=== PATIENT | male | born 1980 | race Caucasian/White ===

== ENCOUNTER 2024-09-04 20:23 | Emergency (ER) | payer BC, SELFPAY ==
[2024-09-04 20:24] VITALS: BP 151/98
[2024-09-04 20:52] LABS: % Basophils 1.1 % (0-2); % Eosinophils 5.8 % (0-6); % Immature Granulocytes 0.1 % (0-0.5); % Lymphocytes 40.3 % (20.5-51.1); % Monocytes 7.9 % (1.7-9.3); % Neutrophils 44.8 % (42.2-75.2); Absolute Basophils 0.1 10^3/uL (0-0.2); Absolute Eosinophils 0.4 10^3/uL (0-0.7); Absolute Lymphocytes 2.9 10^3/uL (1.2-3.4); Absolute Monocytes 0.6 10^3/uL (0.1-0.6); Absolute Neutrophils 3.2 10^3/uL (1.4-6.5); Hematocrit 44.9 % (39.0-52.0); Hemoglobin 16.1 g/dL (13.0-18.0); Mean Corp Hgb Conc. 35.9 g/dL (33.0-37.0); Mean Corpuscular Hgb 31.4 pg (27.0-31.0); Mean Corpuscular Volume 87.7 fL (80.0-94.0); Mean Platelet Volume 9.3 fL (7.4-10.4); Nucleated Red Blood Cells % 0 % (-); Platelet Count 218 10^3/uL (130-400); Red Blood Cell Count 5.12 10^6/uL (4.70-6.10); White Blood Cell Count 7.1 10^3/uL (4.8-10.8)
[2024-09-04 21:10] LABS: ALT (SGPT) 38 U/L (0-50); AST (SGOT) 32 U/L (17-59); Albumin 4.5 g/dl (3.5-5.0); Alkaline Phosphatase 56 U/L (38-126); Blood Urea Nitrogen 14 mg/dl (9-20); Calcium 9.3 mg/dl (8.4-10.2); Carbon Dioxide 26 mmol/L (22-30); Chloride 103 mmol/L (98-107); Glucose 98 mg/dl (70-99); Potassium 4.1 mmol/L (3.5-5.1); Sodium 140 mmol/L (135-145); Total Bilirubin 0.4 mg/dl (0.2-1.3); Total Protein 6.7 g/dl (6.3-8.2); eGFR > 60.00
[2024-09-04 21:21] LABS: Troponin I < 0.012 ng/ml
--- NOTE | 2024-09-04 22:02 | ED.GENMED ---
History of Present Illness
General
Chief Complaint: Chest Pain
Source: patient
Exam Limitations: none
Time Seen by Provider: 09/04/24 21:47
History of Present Illness
History of Present Illness:
43-year-old male otherwise healthy presents complaining intermittent chest discomfort over the past 2 weeks. The pain is along the left side of his chest radiates to his shoulder worse with activity. There is associated shortness of breath.
Occasionally gets worse to take a deep breath and to move his left arm. He is a former smoker. There is significant family history of cardiac disease in his family. He does not take any medication currently. Points at this time
Phy Exam
Physical Exam
Physical Exam:
General: Well-appearing male no acute respiratory distress HEENT: Normocephalic atraumatic
Heart: Regular rate and rhythm no murmurs
Lungs: Clear no wheeze
Extremities: No cyanosis or edema
Musculoskeletal exam: Patient does not have any reproducible tenderness to palpation over the left upper chest and shoulder
Scores
Heart Score for Chest Pain Patients
STEMI patient?: No
History: Slightly or Non-Suspicious
ECG: Normal
Age: </= 45 years
Risk Factors: No Risk Factors
Troponin: </= Normal Limit
Heart Score for Chest Pain Patients: 0
Heart Score Risk: 2.5% MACE over next 6 weeks
Course
Orders/Labs/Results
Orders:
Orders
09/04/24 20:24
EKG [Electrocardiogram (*1)] Urgent
Reason for Study: Chest Pain
09/04/24 20:25
EKG- Treatment ONCE
09/04/24 20:36
Complete Blood Count/With Diff Urgent
Comprehensive Metabolic Panel Urgent
Troponin I Urgent
09/04/24 22:30
D-Dimer Urgent
Troponin I Urgent
09/05/24 00:08
CR Chest - 2 Views Urgent
Comment:
Reason For Exam: chest pain
Abnormal Lab Results
09/04/24
20:36
MCH 31.4 H pg
(27.0-31.0)
Creatinine 0.6 L mg/dL
(0.7-1.3)
09/04/24 20:36
09/04/24 20:36
Vital Signs
Initial and Last Documented VS:
Initial Vital Signs
Temp Pulse Resp BP Pulse Ox
98.3 F 84 18 151/98 98
09/04/24 20:24 09/04/24 20:24 09/04/24 20:24 09/04/24 20:24 09/04/24 20:24
Last Documented Vital Signs
Temp Pulse Resp BP Pulse Ox
98.3 F 84 18 174/94 98
09/04/24 20:24 09/05/24 01:25 09/05/24 01:25 09/05/24 01:25 09/05/24 01:25
MDM/Problems Addressed
Differential Diagnosis Includes:
Chest pain. This is intermittent worse with exertion. Consider angina versus ACS. There is also a pleuritic component. Consider PE. Initial troponin is undetectable. EKG shows sinus rhythm without ischemic changes. Repeat troponin and D-dimer
pending. Vital signs remained stable. If workup negative, patient's symptoms are reproducible with motion. Consider musculoskeletal chest discomfort
*Critical Care Note
Total Time (30-74mins, 75-104mins- exclusive of procedures): Not Applicable
Update Note
Update Note:
Initial and repeat troponin undetectable. D-dimer on the double. Chest x-ray clear. Patient has chest discomfort intermittent over the past 2 weeks but worse today. No sign of acute coronary syndrome currently. Unlikely to be PE with negative
D-dimer normal vital signs and no risk factors otherwise. Question possible musculoskeletal chest discomfort given reproducibility with motion. Recommend ibuprofen or Tylenol and will have patient follow up cardiology.
ED Attending Note
-
Portions of this chart may have been created with voice recognition software.� Occasional wrong word or��sound alike� substitutions may have occurred due to the inherent limitations of voice recognition software.
Discharge Plan
Departure
Patient Disposition: Home (Routine Discharge)
Date of Disposition: 09/05/24
Time of Disposition: 01:07
Patient with high blood pressure during this ER visit?: No
Discharge Problem:
Chest pain
Instructions: Chest Pain CBC Follow Up
Referrals:
NONE,* [Family Provider] -
Activity Restrictions/Additional Instructions:
Workup here is negative. Please return here for worsening symptoms. Follow-up with cardiology otherwise.
Interventions
Interventions:
*Risk Screen - Suicide Last Done: 09/04/24 22:05
*General Assessment Last Done: 09/04/24 20:24
*Neglect/Abuse Screening Last Done: 09/04/24 22:05
ED- Fall Risk Assessment Last Done: 09/04/24 22:05
*ED COVID-19 Vaccine History Last Done: 09/04/24 22:05
*Nursing Disposition Last Done: 09/05/24 01:26
ED- Cardiac Assessment Last Done: 09/04/24 22:05
Discharge Date and Time
Discharge Date/Time: 09/05/24 01:26
Print Language: GABONESE
[2024-09-04 22:59] LABS: Troponin I < 0.012 ng/ml
[2024-09-04 23:58] LABS: D-Dimer < 0.27 ug/mlFEU (0.00-0.50)
[2024-09-05 01:25] VITALS: BP 174/94
== END 2024-09-05 01:26 | disposition home or self-care (01) ==
LOC: EMR 20:23
PROVIDERS: Emergency Medicine; Physician Assistant; EMERGENCY PHYSICIAN Student in an Organized Health Care Education/Training Program
DX: R07.89 Other chest pain (principal); Z82.49 Family history of ischemic heart disease and other diseases of the circulatory system; Z87.891 Personal history of nicotine dependence
CPT/HCPCS: 99283; 71046; 80053; 84484; 85025; 85379; 93005